=== PATIENT | female | born 1995 | race Caucasian/White ===

== ENCOUNTER 2020-11-23 16:37 | Emergency (ER) | payer OTHER ==
[~2020-11-23] VITALS: Ht 162.6 cm; Wt 79.4 kg
[2020-11-23] MEDS ORDERED: KETO10TA2 PO (21:35)
[2020-11-23] MEDS ORDERED: ORPHENADRINE C100 MG PO (21:35)
== END 2020-11-23 22:41 | disposition home or self-care (01) ==
LOC: ER 16:37
DX: S00.83XA Contusion of other part of head, initial encounter (principal); S30.0XXA Contusion of lower back and pelvis, initial encounter; W10.8XXA Fall (on) (from) other stairs and steps, initial encounter; Y93.89 Activity, other specified; Y92.69 Other specified industrial and construction area as the place of occurrence of the external cause; Y99.8 Other external cause status

== ENCOUNTER 2024-07-27 19:25 | Emergency (ER) | payer OTHER ==
[~2024-07-27] VITALS: Ht 162.6 cm; Wt 77.1 kg
[~2024-07-27 19:25] MED LIST: KETO10TA2 PO; ORPHENADRINE C100 MG PO
[2024-07-27] MEDS ORDERED: FAMOtidine 10 MG/ML (4ML VIAL) IV ONE (20:15)
[2024-07-27] MEDS ORDERED: ORPHENADRINE CITRATE 30 MG/ML AMPUL IM ONE (20:15)
[2024-07-27] MEDS ORDERED: ORPHENADRINE CITRATE 30 MG/ML AMPUL ONE (20:19)
[2024-07-27] MEDS ORDERED: FAMOTIDINE/PF 20 MG/2 ML VIAL ONE (20:19)
[2024-07-27] MEDS ORDERED: ONDANSETRON HCL 2 MG/ML VIAL IM ONE (22:00)
[2024-07-27] MEDS ORDERED: ONDANSETRON HCL 2 MG/ML VIAL ONE (22:12)
[2024-07-27] MEDS ORDERED: KETO10TA2 PO (23:05)
[2024-07-27] MEDS ORDERED: ZOFRAN8 MG PO (23:05)
[2024-07-27] MEDS ORDERED: PEPCID AC20 MG PO (23:05)
== END 2024-07-28 00:05 | disposition home or self-care (01) ==
LOC: ER 19:28
DX: S09.8XXA Other specified injuries of head, initial encounter (principal); V49.88XA Car occupant (driver) (passenger) injured in other specified transport accidents, initial encounter; Y93.89 Activity, other specified; Y92.89 Other specified places as the place of occurrence of the external cause; Y99.8 Other external cause status